=== PATIENT | female | born 1935 | race African-American/Black ===

== ENCOUNTER 2024-12-12 14:47 | Emergency (ER) | payer MEDICAID, MEDICARE ==
[~2024-12-12] VITALS: Ht 165.1 cm; Wt 89.0 kg
[2024-12-12 14:55] VITALS: TEMP 36.8; O2SAT 94
[2024-12-12 15:48] LABS: BASOPHILS % 1.1 % (0.0-2.0); EOSINOPHILS % 3.7 % (0.0-5.0); HEMOGLOBIN. 11.6 g/dL (12.0-16.0); LYMPHOCYTES % 22.3 % (20.0-50.0); MEAN CORPUSCULAR HEMOGLOBIN 26.4 pg (28.0-32.0); MEAN CORPUSCULAR HGB CONC 31.3 g/dL (31.0-37.0); MEAN CORPUSCULAR VOLUME 84.3 fL (81.0-99.0); MEAN PLATELET VOLUME 9.4 fl (7.4-10.4); NEUTROPHILS % 64.9 % (40.0-76.0); PLATELET 228 x1000/uL (130-400); RED BLOOD CELL COUNT 4.39 mill/uL (4.2-5.4); RED CELL DISTRIBUTION WIDTH 15.9 % (11.6-14.6); WHITE BLOOD COUNT 7.1 x1000/uL (4.5-11.0)
[2024-12-12 15:53] LABS: CARBON DIOXIDE 26 mEq/L (21-32); CHLORIDE 104 mEq/L (98-107); POTASSIUM 3.7 mEq/L (3.5-5.1); SODIUM 139 mEq/L (136-145)
[2024-12-12 15:54] LABS: CALCIUM 10.4 mg/dL (8.7-10.4); PROTHROMBIN TIME 10.3 sec (9.6-11.0)
[2024-12-12 15:59] LABS: CREATININE 1.1 mg/dL (0.6-1.0); GLUCOSE 143 mg/dL (70-105); TROPONIN I HIGH SENSITIVITY 12 ng/L (3.0-34); UREA NITROGEN BLOOD 23 mg/dL (9-23)
[2024-12-12 16:00] LABS: ALANINE AMINOTRANSFERASE < 7 IU/L (10-49)
[2024-12-12 16:01] LABS: ASPARTATE AMINOTRANSFERASE 14 IU/L (<34); BILIRUBIN DIRECT 0.1 mg/dL (<=3.0); BILIRUBIN TOTAL 0.4 mg/dL (0.1-1.0); PROTEIN TOTAL 7.2 g/dL (6.0-8.3)
[2024-12-12 17:52] VITALS: BP 177/104; PULSE 68; RESP 11; O2SAT 97
== END 2024-12-12 17:57 | disposition home or self-care (01) ==
LOC: ER 14:47
DX: R55 Syncope and collapse (principal); R42 Dizziness and giddiness; I10 Essential (primary) hypertension; E87.8 Other disorders of electrolyte and fluid balance, not elsewhere classified; M19.90 Unspecified osteoarthritis, unspecified site; Z86.73 Personal history of transient ischemic attack (TIA), and cerebral infarction without residual deficits
CPT/HCPCS: 80076; 80048; 83880; 85025; 85610; 84484; 36415; 71045; 70450; 93005; 99285; Z7610